=== PATIENT | female | born 1980 | race Caucasian/White ===

== ENCOUNTER 2021-03-21 14:54 | Outpatient (CLI) | payer BC | END 2021-03-21 14:55 | disposition home or self-care (01) | LOC: CSHMAMMO 14:54 | PROVIDERS: ATTEND Family Medicine | DX: Z12.31 Encounter for screening mammogram for malignant neoplasm of breast (principal) | CPT/HCPCS: 77063; 77067 ==

== ENCOUNTER 2022-06-08 08:30 | Outpatient (CLI) | payer BC | END 2022-06-08 08:31 | disposition home or self-care (01) | LOC: CSHMAMMO 08:30 | PROVIDERS: ATTEND Obstetrics & Gynecology | DX: Z12.31 Encounter for screening mammogram for malignant neoplasm of breast (principal) | CPT/HCPCS: 77063; 77067 ==